=== PATIENT | male | born 1965 | race Caucasian/White ===

== ENCOUNTER 2019-11-13 12:08 | Inpatient (IN) ==
--- NOTE | 2019-11-13 12:49 | Emergency Department Note ---
History of Present Illness General Chief complaint: Mental Health Evaluation Stated complaint: SUICIDAL THOUGHTS Time Seen by Provider: 11/13/19 12:30 Source: patient and family ( who is at the bedside) Mode of arrival: ambulatory Limitations: no limitations History of Present Illness Maximum Pain Intensity: 0 This patient is brought in by his after he has had increased depression. He does have a history of bipolar and was very manic for about a week 2 weeks ago. The last week or so few days he has been depressed. He does do meeting with his counselor today and he said that he had suicidal thoughts so they sent him here he admits to suicidal thoughts about taking pills he has not taken any however no history of suicidal attempt. He has not take any extra medication denies aspirin and Tylenol use. Denies drugs or alcohol. He has had decreased sleep. His appetite is been okay. He denies any is been crying. He thinks that he was triggered by going out of his normal routine he was helping his [id number] move and that put him behind on his schedule at home and his says that small things make him very irritable and then she got irritable at him so they have been bickering. He denies any chest pain or shortness of breath or COVID exposure. No pain anywhere. No focal numbness or weakness. Home Medications Home Medications Medication Instructions Recorded Confirmed Type escitalopram oxalate 20 mg PO DAILY 12/19/18 11/13/19 History lamotrigine 100 mg PO QAM 12/19/18 11/13/19 History [id number] K-lycop 1 tab PO DAILY 12/19/18 11/13/19 History [Men's 50 Plus Multivitamin] aripiprazole 20 mg tablet 20 mg PO DAILY 02/02/19 11/13/19 History metoprolol succinate 50 mg 50 mg PO DAILY #30 tab 02/02/19 11/13/19 Rx tablet,extended release 24 hr docusate sodium 100 mg PO DAILY PRN 11/13/19 11/13/19 History lamotrigine 200 mg PO HS 11/13/19 11/13/19 History saw palmetto 900 mg PO DAILY 11/13/19 11/13/19 History trazodone 50 mg PO HS PRN 11/13/19 11/13/19 History Allergies Allergy/AdvReac Type Severity Reaction Status Date / Time No Known Allergies Allergy Unverified 02/02/19 11:35 Past Med/Surg History Medical History Biliary colic History of basal cell carcinoma Surgical History S/P colonoscopy S/P eye surgery S/P vasectomy Family History Mother Breast cancer Father Myocardial infarction Denies family history of Ovarian cancer Prostate cancer Colorectal cancer Social History Smoking Status: Never smoker Age Started Using Tobacco: 12; Age Quit Using Tobacco: 29; packs per day: 1; Hx Alcohol Use: No Hx Substance Use: No Preferred Language: Lao Communication Ability: Effective Visual Impairment: Blindness Hearing Ability: Normal [place] Required: No Beliefs That Will Affect Care: None marital status: Current Living Situation: Spouse current occupational status: employed current occupation: [employer] Feels Safe at Home: Yes Childhood Exposure to Second-Hand Smoke: Yes Dental Care, Regularly: No Physical Activity Frequency: Does not Exercise Seatbelt Use: always Sunscreen Use: No Review of Systems A total of 10 systems reviewed and were otherwise negative Physical Exam Vital Signs Vital Signs - 24 hr 11/13/19 12:10 11/13/19 14:17 Temperature 36.6 C Temperature Source Oral Pulse Rate 68 Pulse Rate [Finger] 64 Respiratory Rate 16 20 Respiratory Effort / Characteristics Non-Labored Respiratory Depth Normal Blood Pressure 179/99 H Blood Pressure [Left Arm] 149/87 H Blood Pressure Mean 125 Blood Pressure Mean [Left Arm] 107 Pulse Oximetry 97 99 Oxygen Delivery Method Room Air Room Air Sepsis Recent Fever Within 48 Hours No Sepsis New/Unexplained Change in Mental Status N/A Sepsis Action Taken by Nursing No Action Required General: Well developed well nourished middle-age male who appears in no acute distress, breathing comfortably on room air. Normal speech HEENT: Normal cephalic atraumatic. Pupils are equal round and reactive to light. Extraocular movements are intact. Oropharynx is pink with moist mucous membranes. No swelling of the mouth lips or tongue. Neck: Supple with a midline trachea. No meningeal signs or stiffness, no JVD or bruits. No Stridor. Chest: Clear to auscultation bilaterally. No wheezes or rhonchi. No increased work of breathing. Heart: Regular rate and rhythm without murmurs or gallops. Abdomen: Soft nontender, nondistended without rebound guarding or rigidity. Extremities: No cyanosis clubbing or edema. No calf tenderness or assymetry Spine/Back. Non tender to palpation. No CVA tenderness Skin: Good turgor without rashes. Neurologic exam: Cranial nerves two through 12 are intact. Motor and sensation are intact and symmetrical throughout. Psych: Normal affect. He admits to suicidal thoughts Course Administered Medications Discontinued Medications Aripiprazole (Abilify) 20 mg PO NOW ONE Stop: 11/13/19 14:16 Last Admin: 11/13/19 14:36 Dose: 20 mg Documented by: [id number] Escitalopram Oxalate (Lexapro Tab) 20 mg PO NOW ONE Stop: 11/13/19 14:16 Last Admin: 11/13/19 14:37 Dose: 20 mg Documented by: [id number] Lisinopril/HCTZ (Prinzide 10/12.5mg) 1 tab PO NOW ONE Stop: 11/13/19 14:16 Last Admin: 11/13/19 14:41 Dose: Not Given Documented by: [id number] Lamotrigine (Lamictal) 100 mg PO NOW ONE Stop: 11/13/19 14:16 Last Admin: 11/13/19 14:37 Dose: 100 mg Documented by: [id number] Metoprolol Succinate (Toprol Xl) 50 mg PO NOW ONE Stop: 11/13/19 14:16 Last Admin: 11/13/19 14:38 Dose: 50 mg Documented by: [id number] Multivitamins/Minerals (Multivitamin W/ Minerals Tab) 1 tab PO NOW ONE Stop: 11/13/19 14:16 Last Admin: 11/13/19 14:37 Dose: 1 tab Documented by: [id number] Medical Decision Making Differential Diagnosis Depression, anxiety, suicidal ideations, toxicologic, electrolyte or metabolic abnormality, infection Medical Records Attestation: I reviewed the patient's medical records. Home Medications Current Medication List: was personally reviewed by me Laboratory Data Attestation: I reviewed the patient's lab results. Result diagrams: 11/13/19 12:54 11/13/19 12:54 Lab Results 11/13/19 11/13/19 11/13/19 Range/Units 12:15 12:15 12:54 WBC 5.09 (4.8-10.8) K/uL RBC 4.78 (4.7-6.1) M/uL Hgb 14.3 (14.0-18.0) g/dL Hct 41.0 L (42-52) % MCV 85.8 (80-100) fL MCH 29.9 (25-34) pg MCHC 34.9 (32-36) g/dL RDW Std Deviation 42.0 (36.4-46.3) fL RDW Coeff of Ree 13.3 (11.5-14.5) % Plt Count 157 (130-400) K/uL MPV 9.9 (7.4-10.4) fL Immature Gran % (Auto) 0.4 % Neut % (Auto) 71.3 % Lymph % (Auto) 16.1 % [place] % (Auto) 10.0 % Eos % (Auto) 1.8 % Baso % (Auto) 0.4 % Neut # (Auto) 3.63 (1.4-6.5) K/uL Lymph # (Auto) 0.82 L (1.2-3.4) K/uL [place] # (Auto) 0.51 (0.11-0.59) K/uL Eos # (Auto) 0.09 (0-0.5) K/uL Baso # (Auto) 0.02 (0-0.2) K/uL Immature Gran # (Auto) 0.02 (0.00-0.02) K/uL Sodium (136-145) mmol/L Potassium (3.5-5.1) mmol/L Chloride (98-107) mmol/L Carbon Dioxide (21-32) mmol/L Anion Gap (3-11) BUN (7-18) mg/dl Creatinine (0.6-1.4) mg/dl Est Cr Clr Drug Dosing ml/min Est GFR ( Amer) Est GFR (Non-Af Amer) BUN/Creatinine Ratio (10-20) Glucose (70-99) mg/dl Calcium (8.5-10.1) mg/dl Total Bilirubin (0.2-1) mg/dl AST (15-37) U/L ALT (12-78) U/L Alkaline Phosphatase (45-117) U/L Total Protein (6.4-8.2) gm/dl Albumin (3.4-5.0) gm/dl Globulin (2.5-4.0) gm/dl Albumin/Globulin Ratio (0.9-2) TSH (0.300-4.500) uIu/ml Urine Color Yellow Urine Appearance Clear (Clear) Urine pH 7.0 (4.5-7.5) Ur Specific [place] 1.004 (1.000-1.030) Urine Protein Negative (Negative) Urine Glucose (UA) Negative (Negative) Urine Ketones Negative (Negative) Urine Blood Negative (Negative) Urine Nitrite Negative (Negative) Urine Bilirubin Negative (Negative) Urine Urobilinogen Negative (Negative) Ur Leukocyte Esterase Negative (Negative) Salicylates (2.8-20) mg/dl Urine Opiates Screen Neg (Neg) Ur Methadone, Qual Neg (Neg) Acetaminophen (10-30) ug/ml Urine Barbiturates Neg (Neg) Ur Phencyclidine (PCP) Neg (Neg) U Amphetamin/Meth Scrn Neg (Neg) MDMA (Ecstasy) Screen Neg (Neg) U Benzodiazepines Scrn Neg (Neg) Ur Cocaine Metabolite Neg (Neg) U Marijuana (THC) Screen Neg (Neg) Ethyl Alcohol mg/dL (0-3) mg/dl 11/13/19 11/13/19 11/13/19 Range/Units 12:54 12:54 12:54 WBC (4.8-10.8) K/uL RBC (4.7-6.1) M/uL Hgb (14.0-18.0) g/dL Hct (42-52) % MCV (80-100) fL MCH (25-34) pg MCHC (32-36) g/dL RDW Std Deviation (36.4-46.3) fL RDW Coeff of Ree (11.5-14.5) % Plt Count (130-400) K/uL MPV (7.4-10.4) fL Immature Gran % (Auto) % Neut % (Auto) % Lymph % (Auto) % [place] % (Auto) % Eos % (Auto) % Baso % (Auto) % Neut # (Auto) (1.4-6.5) K/uL Lymph # (Auto) (1.2-3.4) K/uL [place] # (Auto) (0.11-0.59) K/uL Eos # (Auto) (0-0.5) K/uL Baso # (Auto) (0-0.2) K/uL Immature Gran # (Auto) (0.00-0.02) K/uL Sodium 137 (136-145) mmol/L Potassium 3.6 (3.5-5.1) mmol/L Chloride 104 (98-107) mmol/L Carbon Dioxide 27 (21-32) mmol/L Anion Gap 6.0 (3-11) BUN 8 (7-18) mg/dl Creatinine 0.78 (0.6-1.4) mg/dl Est Cr Clr Drug Dosing 133.7 ml/min Est GFR ( Amer) 118.6 Est GFR (Non-Af Amer) 102.3 BUN/Creatinine Ratio 10.7 (10-20) Glucose 105 H (70-99) mg/dl Calcium 8.9 (8.5-10.1) mg/dl Total Bilirubin 0.6 (0.2-1) mg/dl AST 32 (15-37) U/L ALT 45 (12-78) U/L Alkaline Phosphatase 86 (45-117) U/L Total Protein 6.9 (6.4-8.2) gm/dl Albumin 3.8 (3.4-5.0) gm/dl Globulin 3.1 (2.5-4.0) gm/dl Albumin/Globulin Ratio 1.2 (0.9-2) TSH 2.210 (0.300-4.500) uIu/ml Urine Color Urine Appearance (Clear) Urine pH (4.5-7.5) Ur Specific [place] (1.000-1.030) Urine Protein (Negative) Urine Glucose (UA) (Negative) Urine Ketones (Negative) Urine Blood (Negative) Urine Nitrite (Negative) Urine Bilirubin (Negative) Urine Urobilinogen (Negative) Ur Leukocyte Esterase (Negative) Salicylates 3.3 (2.8-20) mg/dl Urine Opiates Screen (Neg) Ur Methadone, Qual (Neg) Acetaminophen < 2 L (10-30) ug/ml Urine Barbiturates (Neg) Ur Phencyclidine (PCP) (Neg) U Amphetamin/Meth Scrn (Neg) MDMA (Ecstasy) Screen (Neg) U Benzodiazepines Scrn (Neg) Ur Cocaine Metabolite (Neg) U Marijuana (THC) Screen (Neg) Ethyl Alcohol mg/dL < 3.0 (0-3) mg/dl Blood Pressure Blood Pressure Findings: Elevated blood pressure Blood Pressure Disposition: elevated BP felt to be situational MDM Narrative This patient comes in with depressive symptoms with suicidal ideations, he had no attempts. He was placed in our mental health pod in room A7. He had our typical mental health labs done. He has no acute electrolyte or metabolic abnormalities. He has nothing suggest infection or acute toxicologic process. He was medically cleared and was further evaluated by our psychiatric nurse case management. The patient is going to be placed voluntarily in our mental health unit for further inpatient treatment and evaluation. Impression & Plan Depression, Suicidal ideations Discharge Plan Visit Data *Final* Discharge Date/Time: 11/13/19 15:55 Chief Complaint: Mental Health Evaluation Stated Complaint: SUICIDAL THOUGHTS ED Provider: Dakota Lazar Discharge Problem: Depression, Suicidal ideations Patient Disposition: Admitted As Inpatient Discharge Instructions Interventions: ED Discharge Assessment Last Done: 11/13/19 15:55
[2019-11-13 13:06] LABS: Appearance Urine Clear (Clear); Bilirubin Urine Negative (Negative); Blood Urine Negative (Negative); Color Urine Yellow; Glucose Urine UA Negative (Negative); Ketones Urine Negative (Negative); Leukocyte Esterase Urine Negative (Negative); Nitrite Urine Negative (Negative); Protein Urine Negative (Negative); Specific Gravity Urine 1.004 (1.000-1.030); Urobilinogen Urine Negative (Negative)
[2019-11-13 13:11] LABS: Basophils # (auto) 0.02 K/uL (0-0.2); Basophils % (auto) 0.4 %; Eosinophils # (auto) 0.09 K/uL (0-0.5); Eosinophils % (auto) 1.8 %; Hemoglobin 14.3 g/dL (14.0-18.0); Immature Granulocytes # (auto) 0.02 K/uL (0.00-0.02); Immature Granulocytes % (auto) 0.4 %; Lymphocytes # (auto) 0.82 K/uL (1.2-3.4); Lymphocytes % (auto) 16.1 %; Mean Corpuscular Hemoglobin 29.9 pg (25-34); Mean Corpuscular Hgb Conc 34.9 g/dL (32-36); Mean Corpuscular Volume 85.8 fL (80-100); Mean Platelet Volume 9.9 fL (7.4-10.4); Monocytes # (auto) 0.51 K/uL (0.11-0.59); Neutrophils # (auto) 3.63 K/uL (1.4-6.5); Neutrophils % (auto) 71.3 %; Platelet Count 157 K/uL (130-400); RDW Coefficient of Variation 13.3 % (11.5-14.5); Red Blood Count 4.78 M/uL (4.7-6.1); White Blood Count 5.09 K/uL (4.8-10.8)
[2019-11-13 13:25] LABS: Amphetamines+Metham, Urine Neg (Neg); Barbiturates, Urine Neg (Neg); Benzodiazepine, Urine Neg (Neg); Cocaine, Urine Neg (Neg); MDMA (Ecstacy), Urine Neg (Neg); Methadone, Urine Neg (Neg); Opiate, Urine Neg (Neg); Phencyclidine, Urine Neg (Neg)
[2019-11-13 13:33] LABS: Albumin Level 3.8 gm/dl (3.4-5.0); BUN Creatinine Ratio 10.7 (10-20); Calcium 8.9 mg/dl (8.5-10.1); Creatinine Clr Calc Pharmacy 133.7 ml/min; Est GFR (African American) 118.6; Est GFR (Non-African American) 102.3; Potassium 3.6 mmol/L (3.5-5.1)
[2019-11-13 13:35] LABS: Acetaminophen < 2 ug/ml (10-30); Salicylate 3.3 mg/dl (2.8-20)
[2019-11-13 13:59] LABS: Albumin Globulin Ratio 1.2 (0.9-2); Bilirubin,Total 0.6 mg/dl (0.2-1); Globulin 3.1 gm/dl (2.5-4.0); Thyroid Stimulating Hormone 2.21 uIu/ml (0.300-4.500); Total Protein 6.9 gm/dl (6.4-8.2)
[2019-11-13] MEDS ORDERED: LISINOPRIL/HCTZ 10/12.5MG TAB PO ONE (14:15)
[2019-11-13] MEDS ORDERED: lamoTRIgine 100 MG TAB PO ONE (14:15)
[2019-11-13] MEDS ORDERED: ESCITALOPRAM OXALATE 20 MG TAB PO ONE (14:15)
[2019-11-13] MEDS ORDERED: CEROVITE ADV FORMULA TAB PO ONE (14:15)
[2019-11-13] MEDS ORDERED: METOPROLOL SUCC 50MG EXT REL TAB PO ONE (14:15)
[2019-11-13] MEDS ORDERED: ARIPiprazole 10 MG TAB PO ONE (14:15)
[2019-11-13] MEDS ORDERED: SODIUM CHLORIDE 0.65% NA SOLN 45 ML (OCEAN) PRN (15:07)
[2019-11-13] MEDS ORDERED: BISMUTH SUBSALICYLATE PER ML OMNICELL CHARGE PO PRN (15:07)
[2019-11-13] MEDS ORDERED: ALUMINUM/MAGNESIUM SUSP 30 ML UDC PO PRN (15:07)
[2019-11-13] MEDS ORDERED: MAGNESIUM HYDROXIDE SUSP 30 ML UDC PO PRN (15:07)
[2019-11-13] MEDS ORDERED: TRAZODONE HCL 50 MG TAB PO PRN (15:10)
[2019-11-13] MEDS ORDERED: DOCUSATE SODIUM 100 MG CAP PO PRN (15:19)
[2019-11-13] MEDS: lamoTRIgine 100 MG TAB PO SCH (20:57)
[2019-11-14] MEDS: lamoTRIgine 100 MG TAB PO SCH ×2 (08:25→21:46)
[2019-11-14] MEDS: METOPROLOL SUCC 50MG EXT REL TAB PO SCH (08:25)
[2019-11-14] MEDS: ARIPiprazole 10 MG TAB PO SCH (08:25)
[2019-11-14] MEDS: MULTIVITAMIN TAB PO SCH (08:26)
[2019-11-14] MEDS: ESCITALOPRAM OXALATE 20 MG TAB PO SCH (08:26)
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
[2019-11-15] MEDS: ACETAMINOPHEN 325 MG TAB PO PRN ×2 (06:22→10:29)
[2019-11-15] MEDS: ARIPiprazole 10 MG TAB PO SCH (08:08)
[2019-11-15] MEDS: ESCITALOPRAM OXALATE 20 MG TAB PO SCH (08:08)
[2019-11-15] MEDS: MULTIVITAMIN TAB PO SCH (08:09)
[2019-11-15] MEDS: lamoTRIgine 100 MG TAB PO SCH ×2 (08:09→21:03)
[2019-11-15] MEDS: METOPROLOL SUCC 50MG EXT REL TAB PO SCH (08:09)
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
[2019-11-15] MEDS ORDERED: ARIPiprazole 5 MG TAB PO ONE (12:38)
[2019-11-16 07:53] LABS: Glucose Fasting 105 mg/dl (70-99)
[2019-11-16 07:59] LABS: Chol HDL Ratio 3; Cholesterol 140 mg/dl (0-200); HDL Cholesterol 45 mg/dl; LDL Cholesterol Calculated 75 mg/dl; Triglycerides 99 mg/dl (0-150); VLDL Cholesterol 20 mg/dl
[2019-11-16] MEDS: ARIPiprazole 5 MG TAB PO SCH (08:35)
[2019-11-16] MEDS: METOPROLOL SUCC 50MG EXT REL TAB PO SCH (08:35)
[2019-11-16] MEDS: MULTIVITAMIN TAB PO SCH (08:36)
[2019-11-16] MEDS: lamoTRIgine 100 MG TAB PO SCH ×2 (08:36→20:56)
[2019-11-16] MEDS: ESCITALOPRAM OXALATE 20 MG TAB PO SCH (08:36)
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
[2019-11-17] MEDS: METOPROLOL SUCC 50MG EXT REL TAB PO SCH (06:43)
[2019-11-17] MEDS: MULTIVITAMIN TAB PO SCH (08:23)
[2019-11-17] MEDS: ESCITALOPRAM OXALATE 20 MG TAB PO SCH (08:23)
[2019-11-17] MEDS: lamoTRIgine 100 MG TAB PO SCH (08:23)
[2019-11-17] MEDS: ARIPiprazole 5 MG TAB PO SCH (08:23)
--- NOTE | 2019-11-17 14:21 | Discharge Summary ---
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 the event of worsening symptoms or concerns about side effects, contact your doctor immediately. 3. Utilize new healthy coping skills, anger management skills, and stress management skills learned during your hospitalization. Journal feelings and process them with a support person. Identify stressors or situations that may result in relapse, deterioration or inappropriate behaviors and develop a plan to deal with those issues. 4. If your coping skills are ineffective and you are in crisis, contact your outpatient providers for direction. If unable to reach your providers, please call t he CAN HELP LINE AT or go to the closest Emergency Room. 5. Avoid alcohol and un-prescribed drugs. 6. You have been provided with the Mental Health Advance Directives Pamphlet for your review. AFTERCARE APPOINTMENTS: * Please call your insurance company prior to your scheduled appointment to confirm your aftercare providers are covered. Take your insurance information to your appointments. WHO TO CALL AND WHEN: Medical Emergencies: For questions or emergencies related to your hospital stay, please contact the Inpatient Behavioral Health Unit at [phone]. A manufacturing engineering technician is on-call 26/10 for the Behavioral Health Unit for emergencies At any time you feel your situation is an emergency, you may also call 911 immediately. Your Doctors Instructions noted above were prepared by provider Greg George MD. Pending Studies at Discharge: No Stand-Alone Forms: My [facility], Smoking Cessation, Suicide Prevention Resources Medications and DC Order Prescriptions: New aripiprazole 5 mg tablet 5 mg PO DAILY Qty: 30 RF: 0 Continued metoprolol succinate 50 mg tablet extended release 24 hr 50 mg PO DAILY Qty: 30 RF: 2 aripiprazole [Abilify] 20 mg tablet 20 mg PO DAILY RF: 0 saw palmetto 900 mg PO DAILY RF: 0 trazodone 50 mg Tablet 50 mg PO HS PRN (Reason: Insomnia) RF: 0 docusate sodium 100 mg Tablet 100 mg PO DAILY PRN (Reason: Constipation) RF: 0 lamotrigine 100 mg tablet 200 mg PO HS RF: 0 lamotrigine 100 mg tablet 100 mg PO QAM RF: 0 escitalopram oxalate 20 mg tablet 20 mg PO DAILY RF: 0 Men's 50 Plus Multivitamin 400-20-370 mcg Tablet 1 tab PO DAILY RF: 0 Discharge Orders: Discharge Order (Routine); Ordered 11/17/19 Ordered By: Greg George Admission Data Admit Date/Time: 11/13/19 15:08 Attending Provider: Rose Mary Tejada Admit Provider: Rose Mary Tejada Primary Care Provider: Gertrude Nelson Other Interventions: Discharge Summary Assessment (RN) Last Done: 11/17/19 09:46 PSY Interdisciplinary Discharge Planning Last Done: 11/17/19 11:47 [place] [address] D/C day mgmt > 30 min Patient Type Established Medical Decision Making Moderate Complexity Diagnoses Suicidal ideations R45.851 Bipolar II disorder F31.81 Mild cognitive impairment G31.84 Time Spent (min) 70
== END 2019-11-17 12:55 | disposition home or self-care (01) | DRG 885 ==
LOC: ED 12:08 → 3S 15:08